=== PATIENT | female | born 1945 | race Caucasian/White ===

== ENCOUNTER → 2016-07-26 | Day surgery (SDC) | payer MEDICARE, BC ==
[~2016-07-26] VITALS: Ht 157.5 cm; Wt 70.5 kg
[~2016-07-26] MED LIST: ACIDOPHILIS PO; ASPIRIN E.C. 8181 MG PO; COZAAR 50MG50 MG/TAB PO; DUO-KAPS1 CAP PO; HCTZ12.5TAB PO; MAG-OX 400400 MG/TAB PO; MEGA MULTIVITAM1 TAB PO; NORCO 325 MG-51 TAB PO; PENTASA500 MG PO; PRILOSEC 20MG20 MG PO; SENOKOT S 50 MG1 TAB PO; VITAMIN D1000 IU PO; ZOCOR 20MG20 MG PO
[2016-07-26 12:10] VITALS: BP 137/76; PULSE 62; TEMP 97.2
[2016-07-26 14:12] VITALS: BP 127/75; PULSE 64; TEMP 97.5
[2016-07-26 14:30] VITALS: BP 140/75; PULSE 68
[2016-07-26 14:45] VITALS: BP 132/44; PULSE 75
[2016-07-26 15:00] VITALS: BP 119/60; PULSE 79
== END ==
LOC: SDCO 10:48
DX: R82.90 Unspecified abnormal findings in urine (principal); N39.0 Urinary tract infection, site not specified; R39.89 Other symptoms and signs involving the genitourinary system; Q62.5 Duplication of ureter; K50.90 Crohn's disease, unspecified, without complications; I10 Essential (primary) hypertension
CPT/HCPCS: C1769; J0690; J1100; J2405; J2704; J3010; J7120; Q9967

== ENCOUNTER → 2018-01-23 | Outpatient (CLI) | payer MEDICARE, BC | LOC: COL.RAD 12:18 | DX: M25.552 Pain in left hip (principal) | CPT/HCPCS: J3301; Q9967 ==

== ENCOUNTER 2021-08-08 13:39 | Inpatient (IN) | payer MEDICARE, BC ==
[~2021-08-08] VITALS: Ht 160.1 cm; Wt 71.0 kg
[2021-08-28] VITALS (11 sets, daily range): BP systolic 137–169; BP diastolic 70–92; PULSE 70–86; TEMP 97.2–98.2
[2021-08-28] MEDS ORDERED: CALCIUM 600600 MG PO (06:33)
[2021-08-28] MEDS ORDERED: GLUCOSAMINE 1000 PO (06:35)
[2021-08-28] MEDS ORDERED: CENTRUM SILVER1 CTB PO (06:35)
[2021-08-28] MEDS ORDERED: PROBIOTIC-MAJOR PO (06:37)
[2021-08-28] MEDS ORDERED: CALCIUM CITRAT200 M2 PO (06:38)
[2021-08-28] MEDS ORDERED: BIOTIN5000 MCG PO (06:39)
[2021-08-28] MEDS ORDERED: PENTASA500 MG PO (06:41)
[2021-08-28] MEDS ORDERED: ENTOCORT EC3 MG PO (06:42)
[2021-08-28] MEDS ORDERED: COZAAR 50MG50 MG/TAB PO (06:42)
[2021-08-28] MEDS ORDERED: PRILOSEC 20MG20 MG PO (06:43)
[2021-08-28] MEDS ORDERED: PREDNISONE 5MG5 MG PO (06:43)
[2021-08-28] MEDS ORDERED: ACTEMRA80 MG/4 ML IV (06:45)
--- NOTE | 2021-08-28 11:29 | NUR ---
PT TO ROOM 327 PER BED WITH REPORT FROM [facility] PACU @1030. PT IS A/OX4, LUNGS CTA, BOWEL SOUNDS PRESENT. BULKY DRESSING TO LEFT HIP CDI WITH ICE OVER INCISION. SCDS AND TEDS BILATERALLY. IV TO PUMP PER ORDERS. PEDAL PULSES POSITIVE. PT'S FREIND AT BEDSIDE.
--- NOTE | 2021-08-29 03:48 | NUR ---
Report received from day shift nurse. Patient is A&Ox3 and pleasant. Full body assessment completed and vital signs have been WNL. Left hip has a bulky dressing in place and CDI. Patient has ambulated to the bathroom multiple times throughout the shift, gait is steady and patient denies weakness. Patient does complain of pain in her left hip when ambulating, describes it as aching and rates it 5/10. Patient tolerating oral fluids/medication well and voiding without difficulty. No other complaints at this time, call light within reach.
[2021-08-29 03:53] VITALS: BP 152/88; PULSE 85; TEMP 98.3
[2021-08-29 05:45] LABS: HEMATOCRIT 28.5 % (37.0-47.0); HEMOGLOBIN 9.6 g/dl (12.5-16.0)
[2021-08-29 08:00] VITALS: BP 163/91; PULSE 83; TEMP 97.6
--- NOTE | 2021-08-29 08:00 | NUR ---
Pt doing okay this am. States that she is having quite a bit of pain, pain medication given. Pt states that she feels crazy today. Pt is aware of where she is and why she is here as well as date/time etc. Pt states that she just feels scattered. Dressing to left hip changed to aquacel, incision well approximated with no drainage or redness noted. Assisted pt to the restroom. She did well with walker and standy by assist. Pt did have a bowel movement, then assisted her to her chair. Educated her that therapy would be coming in to see her this morning. Dr Reyes has been in to see patient early this am. Pt has had breakfast, no complaints, call light within reach
[2021-08-29 11:37] VITALS: BP 160/81; PULSE 83; TEMP 98.3
--- NOTE | 2021-08-29 13:02 | NUR ---
Personal Care Assistant met with patient to discuss discharge planning. Patient's cousin is at bedside. Patient lives alone in [place] and sees Dr. Rosemary Wallace for primary care. Patient obtains medications from [email or web address] and has a front wheeled walker. Patient reports she is normally independent with ADLS. Patient advised her son, Carson (ph#[phone]) is her DPOA-HC. SW reviewed PT/OT recommendations with patient which are for home and patient states she does not feel she can return home at this time and would like to go to [facility]. [facility] contacted Linette at [facility] and faxed referral. Linette advised she will review referral with her team. Discharge Plan: [facility] (pending acceptance)
--- NOTE | 2021-08-29 13:16 | NUR ---
Pt doing well, up walking in the halls with minimal assist. Pt reports that she is not doing very well, but is not able to say specifically why. She can get up independently and only requires standby assist. Pt reports having some pain, but does not appear to let it affect her
--- NOTE | 2021-08-29 13:53 | NUR ---
Initial visit; Patient and family thanked [employer] for looking in on her and offering God's blessings. [employer] will follow up.
[2021-08-29 15:48] VITALS: BP 156/76; PULSE 84; TEMP 97.9
[2021-08-29 20:25] VITALS: BP 178/89; PULSE 89; TEMP 97.8
[2021-08-30] VITALS: BP 153/72; PULSE 83; TEMP 98.4
[2021-08-30 04:14] VITALS: BP 158/84; PULSE 81; TEMP 98.1
--- NOTE | 2021-08-30 04:22 | NUR ---
Patient has had an uneventful shift, been resting quietly in her bed. Patient ambulated to the bathroom various times throughout the night, gait was steady and with minimal complaints of pain. Patient had no other complaints throughout the evening, will continue to monitor. Call light within reach.
--- NOTE | 2021-08-30 07:09 | NUR ---
Israel Naranjo has been in to see patient and discussed discharge. Pt is excited about going home, but stated that her contact was wanting her to stay one more day. Pt gets up independently and is able to walk in to the bathroom with no problems. she does use a walker. Educated pt on the plan of care for the day. Pt requested that I call Rachell to inform her of the discharge plan
[2021-08-30 07:43] VITALS: BP 156/97; PULSE 83; TEMP 98.1
--- NOTE | 2021-08-30 09:27 | NUR ---
Follow-up visit; Patient seems to be doing well and glad to have visitors. Roro is a social person and appreciates all people and loves God.
--- NOTE | 2021-08-30 11:35 | NUR ---
Pt doing well at this time, she is sitting up in the chair. She has showered and is dressed and ready for discharge. INT has been removed. Awaiting for afternoon therapy and dischrage orders
[2021-08-30 11:44] VITALS: BP 144/81; PULSE 90; TEMP 97.6
[2021-08-30] MEDS ORDERED: ASPI325T6 PO (13:14)
[2021-08-30] MEDS ORDERED: ROXICODONE 55 MG/TAB PO (13:16)
[2021-08-30] MEDS ORDERED: SENOKOT S 50 MG1 TAB PO (13:16)
--- NOTE | 2021-08-30 14:00 | NUR ---
Reviewed discharge instructions with pt and her friend who is a retired nurse. Reviewed prescriptions and follow up appointment. Pt will also be getting home home health. INT was previously removed. Educated pt to ring call light when she was ready to be escorted out.
--- NOTE | 2021-08-30 14:22 | NUR ---
Ladies Underwear Operator spoke with bedside RN who advised patient is doing well and discharge plan will be to return home with Home Health, per attending. [facility]IA met with patient who is in agreement with this plan and is excited to get home. L[facility]IA provided Medicare.gov list of agencies and patient selected [facility]. LIDIA contacted Dinorah at [facility] and faxed referral and discharge orders. Dinorah advised they will accept and see patient tomorrow. Discharge Plan: Home with [facility]
== END 2021-08-30 14:10 | disposition home health service (06) | DRG 470 ==
LOC: INPTSU 08-28 05:21 → SURG 08-28 07:30
PROVIDERS: ADMIT Orthopaedic Surgery
PROC: 0SRB04Z Replacement of Left Hip Joint with Ceramic on Polyethylene Synthetic Substitute, Open Approach (ICD-10-PCS; principal; 2021-08-28 07:30)
DX: M16.12 Unilateral primary osteoarthritis, left hip (principal); M87.9 Osteonecrosis, unspecified; I10 Essential (primary) hypertension; M81.0 Age-related osteoporosis without current pathological fracture; Z87.891 Personal history of nicotine dependence
CPT/HCPCS: A4314; C1713; C1776; J0690; J2250; J2704; J3010; J7030; J7120; J7512